=== PATIENT | male | born 1960 | race Caucasian/White ===

== ENCOUNTER 2020-03-28 07:24 | Observation (INO) ==
[~2020-03-28 07:24] MED LIST: Buffered Lidocaine 1% SYRIN 1 ml INTRADERM ONE; Gentamicin ADULT 160 MG in NS 0.9% 100 ml BAG 100 ML IVPB ONE; Lactated Ringers 1000 ml BAG 1,000 ML IV SCH
[2020-03-28] MEDS ORDERED: cefTRIAXone 2 GM ADDV.VIAL ONE (07:46)
[2020-03-28] MEDS ORDERED: Midazolam 2 mg/2 ml VIAL 1 mg/ml 2 ml VIAL (2 mg) ONE (08:04)
[2020-03-28] MEDS ORDERED: Lidocaine 2% PF 5 ML VIAL ONE ×2 (08:07→10:22)
[2020-03-28] MEDS ORDERED: Propofol 10 MG/ML 20 ML BTL ONE ×2 (08:07→10:22)
[2020-03-28] MEDS ORDERED: Rocuronium 50 mg VIAL 10 mg/ml 5 ml VIAL (50 mg) ONE (08:30)
[2020-03-28] MEDS ORDERED: Bupivacaine 0.5% SDV PF 30ML VIAL ONE (10:07)
[2020-03-28] MEDS ORDERED: Ondansetron 4 mg VIAL 2 MG/ML 2 ml VIAL IV PRN (10:49)
[2020-03-28] MEDS ORDERED: Naloxone 0.4 mg VIAL 0.4 mg/ml 1 ml VIAL IV PRN (10:49)
[2020-03-28] MEDS ORDERED: fentaNYL 100 mcg/2 ml 50 MCG/ML VIAL IV PRN (10:49)
[2020-03-28] MEDS ORDERED: Furosemide 20 mg/2 ml IV VIAL ONE (11:18)
[2020-03-28] MEDS ORDERED: oxyCODONE/Acetamin 5/325 mg TAB PO PRN (13:56)
[2020-03-28] MEDS: Carbidopa/Levodop 25/100 MG TAB PO SCH ×2 (14:28→21:24)
[2020-03-28 15:18] LABS: BUN/Creatinine Ratio 14.9 (8-20); EGFR African American 90.9 (>60); EGFR Non-African American 75.1 (>60); Potassium 3.7 mmol/L (3.5-5.0)
[2020-03-28] MEDS ORDERED: CMCS:Simvastatin 20 mg TAB (NF) PO SCH (18:00)
[2020-03-28] MEDS: LR @ 40 MLS/HR IV SCH (22:12)
[2020-03-29] MEDS: LR @ 40 MLS/HR IV SCH (06:08)
[2020-03-29] MEDS: Carbidopa/Levodop 25/100 MG TAB PO SCH (08:24)
[2020-03-29 08:25] VITALS: BP 118/62
== END 2020-03-29 10:40 | disposition home or self-care (01) ==
LOC: SSU 07:24 → OR 07:24
PROVIDERS: ADMIT Urology; ATTEND Urology

== ENCOUNTER 2023-09-10 13:18 | Inpatient (IN) ==
[2023-09-10] MEDS: Lidocaine PATCH 5% PATCH TRANSDERM ONE (15:03)
[2023-09-10 15:42] LABS: Urine Appearance Clear; Urine Bilirubin Negative (Negative); Urine Blood Negative (Negative); Urine Color Light-Yellow; Urine Glucose Negative (Negative); Urine Ketones Trace (Negative); Urine Nitrite Negative (Negative); Urine Protein Negative (Negative); Urine Specific Gravity 1.017 (1.002-1.030); Urine Urobilinogen Negative (Negative)
[2023-09-10 15:52] LABS: Urine Benzodiazepine Screen Presumptive Positive (None Detect); Urine Cannabinoids Screen None Detected (None Detect); Urine Opiates Screen Presumptive Positive (None Detect)
[2023-09-10] MEDS: NS 0.9% 1000 ml BAG 1,000 ML IV ONE ×2 (15:56→20:10)
[2023-09-10] MEDS: diazePAM INJ CARPUJECT 5 MG/ML SYRINGE IV ONE (15:56)
[2023-09-10 16:13] LABS: ABS Lymphocytes 0.9 10^3/uL (1.0-4.8); ABS Monocytes 0.6 10^3/uL (0.0-1.1); ABS Nucleated RBC 0.02 10^3/ul; Eosinophil % 0.6 %; Hematocrit 42.7 % (38-53); Hemoglobin 14.7 g/dL (13.2-16.3); Lymphocyte % 13.4 %; Mean Corpuscular Hemoglobin 30.8 pg (27-33); Mean Corpuscular Hgb Conc 34.4 g/dL (31-36); Mean Corpuscular Volume 89.4 fL (80-97); Nucleated Red Blood Cells % 0.3 %/100WBC (0.0-0.8); Platelet Count 227 10^3/uL (150-450); Red Blood Count 4.78 10^6/uL (4.06-5.63); Red Cell Distribution Width 14.6 % (12-17); White Blood Count 6.6 10^3/uL (3.6-10.2)
[2023-09-10 17:25] LABS: ALT 7 U/L (7-52); AST 21 U/L (13-39); Acetaminophen < 15 mcg/mL; Albumin 4.7 g/dL (3.2-5.2); Albumin/Globulin Ratio 2.1 (1-3); Alcohol, S < 13 mg/dL (<13); Alkaline Phosphatase 52 U/L (35-149); Anion Gap 9 mmol/L (2-16); Blood Urea Nitrogen 20 mg/dL (6-24); CO2 Carbon Dioxide 25 mmol/L (22-32); Calcium 9.9 mg/dL (8.6-10.3); Chloride 104 mmol/L (101-111); Creatinine, Serum 1.05 mg/dL (0.67-1.17); Globulin 2.2 g/dL (2-4); Glucose 96 mg/dL (70-100); Potassium 4.3 mmol/L (3.5-5.0); Salicylate < 2.50 mg/dL (<30); Sodium 138 mmol/L (135-145); Total Bilirubin 0.8 mg/dL (0.2-1.0); Total Protein 6.9 g/dL (6.4-8.9); eGFR CKD-EPI 78.8 (>60)
[2023-09-10 17:35] LABS: TSH Ultra Thyroid Stim Horm 0.93 mcIU/mL (0.34-5.60)
[2023-09-10] MEDS ORDERED: Ondansetron 4 mg VIAL 2 MG/ML 2 ml VIAL IV PRN (18:42)
[2023-09-10] MEDS: Ondansetron 4 mg VIAL 2 MG/ML 2 ml VIAL IV ONE (18:59)
[2023-09-10] MEDS: Carbidopa/Levodop 25/100 MG TAB PO ONE (19:00)
[2023-09-10] MEDS: Morphine 4 MG/ML VIAL (1 ml) IV ONE (19:00)
[2023-09-10] MEDS: Sodium Phosphate ADULT ENEMA 133 ML BTL PR ONE (19:15)
[2023-09-10] MEDS: Acetaminophen IV 1 GM/100ML 1,000 MG/100 ML BAG IV ONE (20:10)
[2023-09-10] MEDS ORDERED: Naloxone 0.4 mg VIAL 0.4 mg/ml 1 ml VIAL IV PUSH PRN (20:23)
[2023-09-10] MEDS: HYDROmorphone 0.5 MG/0.5 ML SYRINGE IV SLOW PU PRN (20:46)
[2023-09-10] MEDS: oxyCODONE SR 10 mg TAB PO SCH (22:27)
[2023-09-10] MEDS: Carbidopa/Levodop 25/100 MG TAB PO SCH (23:46)
[2023-09-11] MEDS: Enoxaparin 40 MG/0.4 ML SYR SUBCUT SCH ×2 (00:28→16:00)
[2023-09-11] MEDS: DULoxetine DR 30 mg CAP PO SCH (09:41)
[2023-09-11] MEDS ORDERED: HYDROmorphone 0.5 MG/0.5 ML SYRINGE IV SLOW PU PRN (12:04)
[2023-09-11] MEDS: Morphine 2 MG/ML SYRINGE IV PRN (13:39)
[2023-09-11 19:16] LABS: Magnesium 2.2 mg/dL (1.9-2.7)
[2023-09-11] MEDS: oxyCODONE SR 10 mg TAB PO SCH (20:21)
[2023-09-11] MEDS: Polyethylene Glycol 3350 17 GM PACKET PO PRN (20:24)
[2023-09-13] MEDS: DULoxetine DR 60 mg CAP PO SCH (08:40)
[2023-09-13] MEDS: Senna TAB 8.6 mg TAB PO PRN (20:06)
[2023-09-13] MEDS ORDERED: Morphine 2 MG/ML SYRINGE IV PRN (20:26)
[2023-09-14] MEDS: Polyethylene Glycol 3350 17 GM PACKET PO SCH (16:22)
[2023-09-14] MEDS: Senna TAB 8.6 mg TAB PO SCH (20:14)
[2023-09-15] MEDS: Magnesium CITRATE LIQ 300 ML BTL PO ONE (18:17)
[2023-09-15] MEDS: Lactated Ringers 1000 ml BAG 500 ML IV ONE (18:18)
[2023-09-15] MEDS ORDERED: Lactulose 30 ml UDC PO ONE (23:18)
[2023-09-16] MEDS: Mineral Oil ENEMA 118 ML/BOTTLE BOTTLE PR ONE (00:15)
[2023-09-16 08:39] LABS: Calcium 9.2 mg/dL (8.6-10.3); Creatinine, Serum 1.07 mg/dL (0.67-1.17); Magnesium 2.2 mg/dL (1.9-2.7); Potassium 4.4 mmol/L (3.5-5.0)
[2023-09-17] MEDS ORDERED: Magnesium CITRATE LIQ 300 ML BTL PO ONE (09:43)
[2023-09-17] MEDS ORDERED: PEG 3000 GI LAVAGE 1 GALLON PO ONE (10:15)
[2023-09-17 10:56] VITALS: BP 105/60
== END 2023-09-17 13:55 | DRG 552 ==
LOC: EDHOLD 13:18 → ED 13:18 → SUATTDRO 18:42 → MED 21:47
PROVIDERS: ADMIT Internal Medicine; ATTEND Student in an Organized Health Care Education/Training Program

== ENCOUNTER 2023-09-17 13:42 | Inpatient (IN) ==
[2023-09-17] MEDS ORDERED: Sodium Phosphate ADULT ENEMA 133 ML BTL PR PRN (14:54)
[2023-09-17] MEDS ORDERED: Naloxone Nasal Spray 4 MG/0.1 ML NASAL.SPR INTRANASAL PRN (15:13)
[2023-09-17] MEDS: Enoxaparin 40 MG/0.4 ML SYR SUBCUT SCH (16:15)
[2023-09-17] MEDS: Carbidopa/Levodop 25/100 MG TAB PO ONE (16:15)
[2023-09-17] MEDS: PEG 3000 GI LAVAGE 1 GALLON PO ONE (16:16)
[2023-09-17] MEDS: Carbidopa/Levodop 25/100 MG TAB PO SCH (21:18)
[2023-09-17] MEDS: oxyCODONE SR 10 mg TAB PO SCH (21:18)
[2023-09-17] MEDS: Polyethylene Glycol 3350 17 GM PACKET PO SCH (21:20)
[2023-09-17] MEDS: Senna TAB 8.6 mg TAB PO SCH (21:26)
[2023-09-18 07:28] LABS: Albumin 3.8 g/dL (3.2-5.2); Albumin/Globulin Ratio 2.1 (1-3); Calcium 9.4 mg/dL (8.6-10.3); Globulin 1.8 g/dL (2-4); Potassium 4.4 mmol/L (3.5-5.0); Total Bilirubin 0.6 mg/dL (0.2-1.0); Total Protein 5.6 g/dL (6.4-8.9); eGFR CKD-EPI 83.5 (>60)
[2023-09-18 08:00] LABS: ABS Eosinophils 0.1 10^3/uL (0.0-0.5); ABS Monocytes 0.4 10^3/uL (0.0-1.1); ABS Neutrophils 2.2 10^3/uL (1.5-7.6); ABS Nucleated RBC 0.01 10^3/ul; Eosinophil % 3.5 %; Hematocrit 37.8 % (38-53); Lymphocyte % 25.9 %; Mean Corpuscular Hemoglobin 31.2 pg (27-33); Mean Corpuscular Hgb Conc 34.4 g/dL (31-36); Mean Corpuscular Volume 90.5 fL (80-97); Mean Platelet Volume 6.6 fL (7.5-11.2); Nucleated Red Blood Cells % 0.1 %/100WBC (0.0-0.8); Platelet Count 133 10^3/uL (150-450); Red Blood Count 4.17 10^6/uL (4.06-5.63); Red Cell Distribution Width 14.1 % (12-17); White Blood Count 3.7 10^3/uL (3.6-10.2)
[2023-09-18] MEDS: DULoxetine DR 60 mg CAP PO SCH (08:55)
[2023-09-20] MEDS: Magnesium Hydroxide LIQ 30 ML UDC PO PRN (14:33)
[2023-09-20] MEDS: Carbidopa/Levodop 25/100 MG TAB PO SCH (16:16)
[2023-09-21 06:43] LABS: ABS Eosinophils 0.1 10^3/uL (0.0-0.5); ABS Lymphocytes 1.2 10^3/uL (1.0-4.8); ABS Monocytes 0.4 10^3/uL (0.0-1.1); ABS Neutrophils 2.6 10^3/uL (1.5-7.6); Eosinophil % 2.8 %; Hematocrit 37.5 % (38-53); Hemoglobin 12.8 g/dL (13.2-16.3); Lymphocyte % 27.3 %; Mean Corpuscular Hgb Conc 34.2 g/dL (31-36); Mean Corpuscular Volume 90.7 fL (80-97); Mean Platelet Volume 6.7 fL (7.5-11.2); Nucleated Red Blood Cells % 0.1 %/100WBC (0.0-0.8); Platelet Count 161 10^3/uL (150-450); Red Blood Count 4.14 10^6/uL (4.06-5.63); Red Cell Distribution Width 14.2 % (12-17); White Blood Count 4.3 10^3/uL (3.6-10.2)
[2023-09-21 06:57] LABS: Albumin 3.9 g/dL (3.2-5.2); Albumin/Globulin Ratio 2.2 (1-3); Calcium 9.3 mg/dL (8.6-10.3); Creatinine, Serum 0.99 mg/dL (0.67-1.17); Globulin 1.8 g/dL (2-4); Potassium 4.4 mmol/L (3.5-5.0); Total Bilirubin 0.4 mg/dL (0.2-1.0); Total Protein 5.7 g/dL (6.4-8.9); eGFR CKD-EPI 84.5 (>60)
[2023-09-21] MEDS: Al Hydrox/Mg Hydrox/Simet LIQ 30 ML UDC PO PRN (08:53)
[2023-09-21] MEDS ORDERED: Lactulose 30 ml UDC PO PRN (17:48)
[2023-09-21] MEDS: Carbidopa/Levodop 25/100 MG TAB PO SCH (20:40)
[2023-09-24 06:44] VITALS: BP 125/80
== END 2023-09-24 15:20 | disposition home or self-care (01) | DRG 558 ==
LOC: PMRU 13:59
PROVIDERS: ADMIT Physical Medicine & Rehabilitation; ATTEND Physical Medicine & Rehabilitation